=== PATIENT | female | born 1985 | race American Indian/Alaskan Native ===

== ENCOUNTER 2019-12-25 16:31 | Emergency (ER) | payer SELFPAY ==
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
[2019-12-25 18:27] VITALS: BP 138/88
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
[2019-12-26] MEDS ORDERED: ACETAMINOPHEN 500 MG TAB PO ONE (01:03)
[2019-12-26] MEDS ORDERED: IBUPROFEN 600 MG TAB PO ONE (01:03)
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
== END 2019-12-26 01:55 | disposition home or self-care (01) ==
LOC: ED 16:31
DX: S39.012A Strain of muscle, fascia and tendon of lower back, initial encounter (principal); V89.2XXA Person injured in unspecified motor-vehicle accident, traffic, initial encounter; Y93.89 Activity, other specified; Y92.410 Unspecified street and highway as the place of occurrence of the external cause; Y99.8 Other external cause status
CPT/HCPCS: 72070; 72100; 99282